=== PATIENT | female | born 2000 | race Two or more races ===

== ENCOUNTER 2022-02-08 09:08 | Emergency (ER) | payer OTHER ==
[2022-02-08] MEDS ORDERED: ONDANSETRON 4 MG/2 ML VIAL IVPUSH ONE (09:16)
[2022-02-08] MEDS ORDERED: DEXTROSE 5%-NORMAL SALINE 1,000 ML IV ONE (09:16)
[2022-02-08 09:42] VITALS: BP 134/76; PULSE 72; TEMP 98.2; BMI 12.7
[2022-02-08 10:10] LABS: HEMATOCRIT 36.8 % (32.4-45.2); HEMOGLOBIN 13.1 G/dL (10.7-15.3); MCHC 35.5 g/dl (32.0-36.0); MEAN CELL VOLUME 81.6 fl (80-96); MEAN PLT VOLUME 9.7 fl (7.5-11.1); PLATELET COUNT 235.8 10^3/uL (134-434); RBC 4.51 10^6/uL (3.60-5.2); RDW 16.6 % (11.6-15.6); WHITE BLOOD COUNT 5.5 10^3/uL (4.0-10.8)
[2022-02-08 10:20] LABS: ALBUMIN 4.5 g/dl (3.4-5.0); CALCIUM 9.5 mg/dl (8.5-10); CREATININE 0.6 mg/dl (0.55-1.3); TOT PROT 7.5 g/dl (6.4-8.2)
== END 2022-02-08 11:16 | disposition home or self-care (01) ==
LOC: FER 09:08
PROC: 3E033GC Introduction of Other Therapeutic Substance into Peripheral Vein, Percutaneous Approach (ICD-10-PCS; principal; 2022-02-08)
PROC: 3E033GC Introduction of Other Therapeutic Substance into Peripheral Vein, Percutaneous Approach (ICD-10-PCS; 2022-02-08)
DX: O21.1 Hyperemesis gravidarum with metabolic disturbance (principal)
CPT/HCPCS: 36415; 80053; 81003; 84702; 85025; 96374; 96375; 99284-25

== ENCOUNTER 2022-05-06 17:25 | Emergency (ER) | payer OTHER ==
[2022-05-06 17:56] VITALS: BP 100/65; PULSE 80; RESP 18; TEMP 97.5; BMI 14.0
[2022-05-06] MEDS ORDERED: ONDANSETRON 4 MG/2 ML VIAL IVPUSH ONE (17:56)
[2022-05-06] MEDS ORDERED: SODIUM CHLORIDE 0.9% 500 ML INFUS.BAG IV ONE (17:56)
[2022-05-06] MEDS ORDERED: FAMOTIDINE 20 MG/50 ML IVPB 20 MG/50 ML MG IVPB ONE ×2 (17:56→18:09)
[2022-05-06] MEDS ORDERED: ONDANSETRON 4 MG/2 ML VIAL ONE (18:09)
[2022-05-06 18:19] LABS: HEMATOCRIT 32.1 % (32.4-45.2); HEMOGLOBIN 11.3 G/dL (10.7-15.3); MCH 30.5 pg (25.7-33.7); MCHC 35.1 g/dl (32.0-36.0); PLATELET COUNT 197.7 10^3/uL (134-434); RBC 3.69 10^6/uL (3.60-5.2); RDW 15.2 % (11.6-15.6); WHITE BLOOD COUNT 3.8 10^3/uL (4.0-10.8)
[2022-05-06 18:31] LABS: ALBUMIN 3.3 g/dl (3.4-5.0); BILIRUBIN,TOTAL 0.7 mg/dl (0.2-1); CALCIUM 8.4 mg/dl (8.5-10); CREATININE 0.5 mg/dl (0.55-1.3); TOT PROT 6.5 g/dl (6.4-8.2)
[2022-05-06 23:41] LABS: PLATELET ESTIMATE ADEQUATE
== END 2022-05-06 19:13 | disposition home or self-care (01) ==
LOC: FER 17:25
PROC: 3E033GC Introduction of Other Therapeutic Substance into Peripheral Vein, Percutaneous Approach (ICD-10-PCS; principal; 2022-05-06)
DX: O99.512 Diseases of the respiratory system complicating pregnancy, second trimester (principal); U07.1 COVID-19; O21.9 Vomiting of pregnancy, unspecified; Z3A.19 19 weeks gestation of pregnancy
CPT/HCPCS: 36415; 80053; 85025; 99284-25